=== PATIENT | female | born 1965 | race Caucasian/White ===

== ENCOUNTER 2017-05-12 07:36 | Emergency (ER) | payer OTHER ==
[~2017-05-12] VITALS: Ht 165.1 cm; Wt 56.7 kg
[~2017-05-12 07:36] MED LIST: KETO10TA2 PO
[2017-05-12] MEDS ORDERED: EFFEXOR XR37.5 MG (07:55)
[2017-05-12] MEDS ORDERED: ESTR0.624 (07:55)
== END 2017-05-12 16:37 | disposition home or self-care (01) ==
LOC: ER 07:36
DX: R10.31 Right lower quadrant pain (principal)

== ENCOUNTER 2018-06-15 18:07 | Emergency (ER) | payer OTHER ==
[~2018-06-15] VITALS: Ht 165.1 cm; Wt 56.2 kg
[~2018-06-15 18:07] MED LIST changes: +EFFEXOR XR37.5 MG; +ESTR0.624
[2018-06-15] MEDS ORDERED: DICY20TA (18:28)
[2018-06-15] MEDS ORDERED: CIPRO500 MG (18:28)
== END 2018-06-15 22:19 | disposition home or self-care (01) ==
LOC: ER 18:07
DX: K59.00 Constipation, unspecified (principal); R10.31 Right lower quadrant pain

== ENCOUNTER 2020-07-24 09:59 | Outpatient (CLI) | payer OTHER ==
[~2020-07-24 09:59] MED LIST changes: +CIPRO500 MG; +DICY20TA
== END 2020-07-24 10:01 | disposition home or self-care (01) ==
LOC: NUCLEAR 09:59
PROVIDERS: ATTEND Orthopaedic Surgery
DX: I87.2 Venous insufficiency (chronic) (peripheral) (principal); M79.605 Pain in left leg

== ENCOUNTER → 2020-07-29 06:22 | Outpatient (CLI) | payer OTHER | END | disposition home or self-care (01) | LOC: LAB 06:22 | PROVIDERS: ATTEND Orthopaedic Surgery | DX: M06.4 Inflammatory polyarthropathy (principal); D64.89 Other specified anemias ==

== ENCOUNTER 2022-03-05 12:35 | Inpatient (IN) | payer OTHER ==
[~2022-03-05] VITALS: Ht 165.1 cm; Wt 56.7 kg
[2022-03-05] MEDS ORDERED: ATORVASTATIN CA20 MG PO (13:40)
[2022-03-05] MEDS ORDERED: RALOXIFENE HCL60 MG PO (13:41)
--- NOTE | 2022-03-05 13:46 | NUR ---
PTE ALERTA Y ORIENTADA X3 REFIERE TENER DENGUE. JACOBO DOCTOR LE ORDENO LABS CUAL OBTUVO 26 DE PLAQUETAS Y LE ORDENO QUE VISITARA LA [facility] DE EMERGENCIA.
--- NOTE | 2022-03-05 15:20 | NUR ---
PTE ALERTA Y ORIENTADA X3. PACIENTE EVALUADA POR EL DR. RAYO. RN KENYON EDUCA PACIENTE SOBRE EL TRATAMIENTO MEDICO Y ESTA REFIERE ENTENDER. LA SIERRA MUESTRAS DE NOMI JOSE ANTONIO ORDEN MEDICA. CANALIZA EN BRAZO DERECHO CON UN #20 Y COLOCA IV FLUIDS.
== END 2022-03-07 22:23 | disposition home or self-care (01) | DRG 813 ==
LOC: ER 12:35 → MEDI 19:10
PROVIDERS: ADMIT Internal Medicine; ATTEND Internal Medicine
DX: D69.49 Other primary thrombocytopenia (principal); B34.9 Viral infection, unspecified; Z20.822 Contact with and (suspected) exposure to COVID-19

== ENCOUNTER → 2022-07-25 06:57 | Outpatient (CLI) | payer OTHER ==
[~2022-07-25 06:57] MED LIST changes: +ATORVASTATIN CA20 MG PO; +RALOXIFENE HCL60 MG PO
== END | disposition home or self-care (01) ==
LOC: LAB 06:57
PROVIDERS: ATTEND Internal Medicine
DX: D64.89 Other specified anemias (principal); E88.89 Other specified metabolic disorders; D68.8 Other specified coagulation defects; N39.0 Urinary tract infection, site not specified; A49.02 Methicillin resistant Staphylococcus aureus infection, unspecified site; E11.9 Type 2 diabetes mellitus without complications; I49.9 Cardiac arrhythmia, unspecified; I10 Essential (primary) hypertension; Z76.89 Persons encountering health services in other specified circumstances

== ENCOUNTER 2022-11-17 06:26 | Emergency (ER) | payer OTHER ==
[~2022-11-17] VITALS: Ht 165.1 cm; Wt 57.2 kg
[2022-11-17] MEDS ORDERED: CIPRO500 MG PO (12:32)
[2022-11-17] MEDS ORDERED: PEPCID AC20 MG PO (12:32)
[2022-11-17] MEDS ORDERED: LEVSIN/SL0.125 MG SL (12:32)
[2022-11-17] MEDS ORDERED: METRONIDAZOLE500 MG PO (12:32)
== END 2022-11-17 14:18 | disposition home or self-care (01) ==
LOC: ER 06:26
DX: K57.32 Diverticulitis of large intestine without perforation or abscess without bleeding (principal); E78.49 Other hyperlipidemia; N80.8 Other endometriosis; Z20.822 Contact with and (suspected) exposure to COVID-19